=== PATIENT | male | born 1990 | race American Indian/Alaskan Native ===

== ENCOUNTER 2020-12-18 22:16 | Emergency (ER) | payer OTHER ==
[2020-12-18 22:51] VITALS: BP 144/95
--- NOTE | 2020-12-18 23:13 | Emergency Department Report ---
ED General Adult HPI - General Chief complaint: Extremity Injury, Lower Stated complaint: POSS BILATERAL FOOT PAIN Time Seen by Provider: 12/18/20 23:08 Source: police Mode of arrival: Ambulatory Limitations: No Limitations - History of Present Illness Initial comments: 30-year-old -[place] male patient presents in police custody with complaints of right heel pain today. Patient states that the police stepped on his foot causing him to have heel pain. He also states that there is dry skin that appeared after the police stepped on his foot. He rates his pain as a 10/10 in severity. Severity scale (0 -10): 10 - Related Data Allergies Allergy/AdvReac Type Severity Reaction Status Date / Time No Known Allergies Allergy Unverified 12/18/20 22:54 ED Review of Systems ROS: Stated complaint: POSS BILATERAL FOOT PAIN Other details as noted in HPI Musculoskeletal: arthralgia. denies: joint swelling Skin: denies: change in color Neurological: denies: numbness ED Past Medical Hx - Social History Smoking Status: Smoker, Current Status Unknown ED Physical Exam - General Limitations: No Limitations General appearance: alert, in no apparent distress - Head Head exam: Present: atraumatic, normocephalic - Eye Eye exam: Absent: scleral icterus - Neck Neck exam: Present: normal inspection - Respiratory Respiratory exam: Absent: respiratory distress - Cardiovascular Cardiovascular Exam: Present: regular rate - Expanded Lower Extremity Exam Right Ankle exam: Present: full ROM. Absent: tenderness Foot/Toe exam: Present: full ROM, tenderness (Noted to heal with thick callused skin overlying; no bruising, redness, or swelling noted). Absent: deformity Neuro vascular tendon exam: Absent: pulse deficit, abnormal cap refill Gait: Negative: unable to bear weight - Back Exam Back exam: Present: full ROM - Neurological Exam Neurological exam: Present: alert, oriented X3 - Psychiatric Psychiatric exam: Present: normal affect, normal mood - Skin Skin exam: Present: warm, dry, intact, normal color. Absent: rash ED Course Vital Signs 12/18/20 12/18/20 22:50 22:55 Temperature 98.3 F 98.3 F Pulse Rate 92 H 89 Respiratory 18 16 Rate Blood Pressure 144/95 144/95 [Left] O2 Sat by Pulse 98 95 Oximetry ED Medical Decision Making - Radiology Data Radiology results: report reviewed RIGHT FOOT 3 VIEWS INDICATION / CLINICAL INFORMATION: heel pain after injury COMPARISON: None available. FINDINGS: BONES / JOINT(S): No acute fracture or subluxation. Small calcaneal spur. SOFT TISSUES: No significant abnormality. ADDITIONAL FINDINGS: None. - Medical Decision Making 30-year-old -[place] male patient presents in police custody with complaints of right heel pain today. Patient states that the police stepped on his foot causing him to have heel pain. He also states that there is dry skin that appeared after the police stepped on his foot. He rates his pain as a 10/10 in severity. XRay is negative any acute bony abnormality. Pt is stable for discharge Critical care attestation.: If time is entered above; I have spent that time in minutes in the direct care of this critically ill patient, excluding procedure time. ED Disposition Clinical Impression: Acute pain of right foot Disposition: DC-01 TO HOME OR SELFCARE Is pt being admited?: No Condition: Stable Instructions: Foot Pain Referrals: JOSE EWING MD [Staff Physician] - 3-5 Days
--- NOTE | 2020-12-19 00:14 | XRay Report ---
RIGHT FOOT 3 VIEWS INDICATION / CLINICAL INFORMATION: heel pain after injury COMPARISON: None available. FINDINGS: BONES / JOINT(S): No acute fracture or subluxation. Small calcaneal spur. SOFT TISSUES: No significant abnormality. ADDITIONAL FINDINGS: None. Signer Name: Atif Alfaro MD Signed: 12/19/2020 12:10 AM Workstation Name: [id number]
== END 2020-12-19 00:30 | disposition home or self-care (01) ==
LOC: EEVIPCON 22:16 → ED 22:16
DX: M25.571 Pain in right ankle and joints of right foot (principal); F17.200 Nicotine dependence, unspecified, uncomplicated
CPT/HCPCS: 99283